=== PATIENT | male | born 1995 | race Two or more races ===

== ENCOUNTER 2020-06-10 20:09 | Emergency (ER) | payer SELFPAY ==
[~2020-06-10] VITALS: Ht 185.4 cm; Wt 70.3 kg
--- NOTE | 2020-06-10 20:13 | NUR ---
PT [employer] & [employer] C/O RUNNING AROUND NEIGHBORHOOD SCREAMING AND ERRATIC BEHAVIOR. PT PALCED IN BED 15 ON MONITOR AND PULSE OX. NO ACUTE DISTRESS NOTED. AWAITING FOR EVAL AND ORDERS.
[2020-06-10] MEDS ORDERED: LORAZEPAM INJ 2 MG/ML VIAL ONE (20:15)
[2020-06-10] MEDS ORDERED: diphenhydrAMINE HCL 50 MG/ML VIAL ONE (20:15)
[2020-06-10] MEDS ORDERED: HALOPERIDOL LACTATE INJ 5 MG/ML VIAL ONE (20:15)
--- NOTE | 2020-06-10 20:19 | NUR ---
PT MEDICATED ORDERED BY DR MA
[2020-06-10] MEDS ORDERED: LORAZEPAM INJ 2 MG/ML VIAL IM/IV ONE (20:30)
[2020-06-10] MEDS ORDERED: diphenhydrAMINE HCL 50 MG/ML VIAL IM ONE (20:30)
[2020-06-10] MEDS ORDERED: HALOPERIDOL LACTATE INJ 5 MG/ML VIAL IM ONE (20:30)
[2020-06-10 20:50] LABS: BASOPHILS # (AUTO) 0.1 /CMM (0.0-0.2); BASOPHILS % (AUTO) 0.7 % (0.0-2.0); EOSINOPHILS % (AUTO) 0.9 % (0.0-6.0); HEMATOCRIT 44 % (39-51); HEMOGLOBIN 15.1 g/dL (13.5-17.5); LYMPHOCYTES # (AUTO) 1.4 /CMM (0.8-4.8); MEAN CORPUSCULAR HGB CONC 34 g/dl (31.0-36.0); MEAN CORPUSCULAR VOLUME 85 fL (80-96); MONOCYTES # (AUTO) 0.9 /CMM (0.1-1.30); MONOCYTES % (AUTO) 10.4 % (2.0-12.0); NEUTROPHILS # (AUTO) 6.2 /CMM (1.8-8.9); PLATELET COUNT (AUTO) 220 /CMM (150-450); RED BLOOD CELL COUNT(AUTO) 5.21 MIL/uL (4.5-6.0); WHITE BLOOD COUNT (AUTO) 8.6 K/uL (4.3-11.0)
--- NOTE | 2020-06-10 21:03 | NUR ---
URINE COLLECTED, SENT TO LAB.
[2020-06-10 21:11] LABS: ALANINE AMINOTRANSFERASE 36 U/L (12-78); ALBUMIN 4.1 g/dL (3.4-5.0); ALCOHOL, BLOOD < 3 mg/dL (0-0); ALKALINE PHOSPHATASE 69 U/L (46-116); ASPARTATE AMINOTRANSFERASE 38 U/L (15-37); BILIRUBIN,DIRECT 0.3 mg/dL (0.0-0.2); BILIRUBIN,TOTAL 0.9 mg/dL (0.2-1.0); CALCIUM, SERUM 9.2 mg/dL (8.5-10.1); CARBON DIOXIDE 28 mmol/L (21-32); CHLORIDE 98 mmol/L (98-107); GLUCOSE 88 mg/dL (74-106); POTASSIUM 3.6 mmol/L (3.5-5.1); SODIUM SERUM 136 mmol/L (136-145); TOTAL PROTEIN, SERUM 7.7 g/dL (6.4-8.2); UREA NITROGEN, BLOOD 12 mg/dL (7-18)
[2020-06-10 21:12] LABS: ACETAMINOPHEN < 10 ug/ml (10-30)
[2020-06-10 21:18] LABS: BILIRUBIN,URINE SMALL (NEGATIVE); COLOR,URINE AMBER (YELLOW); LEUKOCYTE ESTERASE ,URINE NEGATIVE (NEGATIVE); NITRITE, URINE NEGATIVE (NEGATIVE); PH,URINE 5.5 (5.0-8.0); PROTEIN,URINE NEGATIVE (NEGATIVE); UGLUCOSE NEGATIVE (NEGATIVE); UROBILINOGEN,URINE 0.2 EU/dL (0.2)
[2020-06-10 21:24] LABS: BACTERIA,URINE Few /HPF (None Seen); RBC,URINE 0-2 /HPF (0-2); SQUAMOUS EPITHELIAL CELL,UR Few /HPF (None Seen); WBC,URINE 0-2 /HPF (0-3)
--- NOTE | 2020-06-10 21:33 | NUR ---
QUENTINID SWABBED, SENT TO LAB.
--- NOTE | 2020-06-11 04:34 | NUR ---
PT AWAKE, DENIES SI AND HI. VSS. AWARE OF PLAN OF CARE.
--- NOTE | 2020-06-11 05:04 | NUR ---
PT AAOX4, NO ACUTE DISTRESS NOTED, RESP EVEN AND UNLABORED. PT DENIES PAIN OR DISCOMFORT AT THIS TIME. PT DENIES SI/HI. Patient discharged to home in stable condition. Written and verbal after care instructions given. Patient verbalizes understanding of instruction. PT DENIES BEING HOMELESS.
[2020-06-11 05:06] VITALS: BP 129/73
== END 2020-06-11 05:07 | disposition home or self-care (01) ==
LOC: ER 20:11
DX: F15.129 Other stimulant abuse with intoxication, unspecified (principal); R45.851 Suicidal ideations; Z20.822 Contact with and (suspected) exposure to COVID-19; R00.0 Tachycardia, unspecified
CPT/HCPCS: 36415; 80048; 80076; 80299; 80307; 80320; 81001; 84484; 85025; 87426; 93005; 96372 ×2; 99291; C9803; J1200; J1630; J2060; G0480